=== PATIENT | female | born 1935 | race Caucasian/White ===

== ENCOUNTER 2020-03-19 22:22 | Emergency (ER) | payer MEDICARE ==
[2020-03-19] MEDS ORDERED: Metoprolol Succinate 25 MG Tab.ER PO ONE (22:59)
--- NOTE | 2020-03-19 23:17 | EDM.PDOC ---
ED HPI GENERAL MEDICAL PROBLEM - General Chief Complaint: General Stated Complaint: fell Time Seen by Provider: 03/19/20 22:35 Source of Information: Reports: Patient, Family History Limitations: Reports: No Limitations - History of Present Illness INITIAL COMMENTS - FREE TEXT/NARRATIVE: Patient presented to the ED because she fell 16 steps. She was drinking wine tonight and she is heading to her bedroom but instead she missed a turn and went to the stairs instead and fell 16 steps down to the basement. She c/o back pain and right rib pain which according to he son is chronic. There was also a brief LOC after the fall. Tailbone Pain Score (Numeric/FACES): 10 - Related Data Allergies Allergy/AdvReac Type Severity Reaction Status Date / Time No Known Allergies Allergy Verified 03/19/20 22:42 Home Meds: Home Meds hydroCHLOROthiazide [Hydrochlorothiazide] 25 mg PO DAILY 03/19/20 [History] Past Medical History Cardiovascular History: Reports: Hypertension, Other (See Below) Other Cardiovascular History: Tachycardia and tachypnea Musculoskeletal History: Reports: Arthritis - Past Surgical History GI Surgical History: Reports: Other (See Below) Other GI Surgeries/Procedures: Hemicolectomy Musculoskeletal Surgical History: Reports: Hip Replacement Social & Family History - Tobacco Use Smoking Status *Q: Former Smoker Used Tobacco, but Quit: Yes Month/Year Tobacco Last Used: 45 years ago - Caffeine Use Caffeine Use: Reports: Coffee - Recreational Drug Use Recreational Drug Use: No ED ROS GENERAL - Review of Systems Review Of Systems: See Below Constitutional: Reports: No Symptoms HEENT: Reports: No Symptoms Respiratory: Reports: No Symptoms Cardiovascular: Reports: No Symptoms Endocrine: Reports: No Symptoms GI/Abdominal: Reports: No Symptoms : Reports: No Symptoms Musculoskeletal: Reports: Back Pain, Other (rib pain-rt) Skin: Reports: No Symptoms Neurological: Reports: No Symptoms ED EXAM, GENERAL - Physical Exam Exam: See Below Exam Limited By: No Limitations General Appearance: Alert, No Apparent Distress Ears: Normal External Exam, Normal Canal, Hearing Grossly Normal Nose: Normal Inspection, Normal Mucosa, No Blood Throat/Mouth: Normal Inspection, Normal Lips, Normal Teeth Head: Atraumatic, Normocephalic Neck: Normal Inspection, Supple, Non-Tender, Full Range of Motion Respiratory/Chest: No Respiratory Distress, Lungs Clear, Normal Breath Sounds Cardiovascular: Normal Peripheral Pulses, Regular Rate, Rhythm, No Edema, No Gallop GI/Abdominal: Normal Bowel Sounds, Soft, Non-Tender, No Organomegaly Back Exam: Normal Inspection, Vertebral Tenderness Extremities: Normal Inspection, No Pedal Edema Neurological: Alert, Oriented, CN II-XII Intact, Normal Cognition, Normal Gait Psychiatric: Normal Affect Course - Vital Signs Text/Narrative:: Labs/CT-head/c-spine,thoracic spine,lumbar spine, R rib with CXR results were discussed with patient and her son Micheline con 20 meq, 2 PO x2 doses Metoprolol 25 mg PO x1 Ibuprofen 600 mg and tylenol 1000 Patient became hypotensive after talking to Dr Villatoro, a 1 L of saline bolus was given and her BP improved. Neurosurgery consult was done with Dr Kelly who just want her a baseline standing thoracic spine and will follow with him in 2-3 weeks. Last Recorded V/S: Last Vital Signs Temp 36.5 C 03/19/20 22:30 Pulse 128 H 03/19/20 23:04 Resp 25 H 03/19/20 22:30 BP 96/68 03/19/20 23:04 Pulse Ox 88 L 03/20/20 02:00 - Orders/Labs/Meds Orders: Active Orders 24 hr Category Date Time Status Oxygen Therapy, ED [RC] ASDIRECTED Care 03/20/20 02:00 Active Cervical Spine wo Cont [CT] Stat Exams 03/19/20 22:52 Taken Chest Abdomen Pelvis w Cont [CT] Stat Exams 03/20/20 02:02 Taken Head wo Cont [CT] Stat Exams 03/19/20 22:52 Taken Lumbar Spine wo Cont [CT] Stat Exams 03/19/20 23:08 Taken Ribs 2V w Chest Rt [CR] Stat Exams 03/19/20 22:52 Taken Thoracic Spine 3V [CR] Stat Exams 03/20/20 02:09 Taken Thoracic Spine wo Cont [CT] Stat Exams 03/19/20 23:08 Taken Labs: Laboratory Tests 03/19/20 03/19/20 03/19/20 Range/Units 23:05 23:05 23:05 WBC 7.7 (4.5-12.0) X10-3/uL RBC 4.05 (3.23-5.20) x10(6)uL Hgb 14.1 (11.5-15.5) g/dL Hct 42.1 (30.0-51.3) % MCV 103.9 H (80-96) fL MCH 34.9 H (27.7-33.6) pg MCHC 33.6 (32.2-35.4) g/dL RDW 14.2 (11.5-15.5) % Plt Count 285 (125-369) X10(3)uL MPV 6.2 L (7.4-10.4) fL Neut % (Auto) 48.4 (46-82) % Lymph % (Auto) 41.2 H (13-37) % Kinney % (Auto) 9.3 (4-12) % Eos % (Auto) 1 (1.0-5.0) % Baso % (Auto) 0 (0-2) % Neut # (Auto) 3.7 (1.6-8.3) # Lymph # (Auto) 3.2 (0.6-5.0) # Kinney # (Auto) 0.7 (0.0-1.3) # Eos # (Auto) 0.1 (0.0-0.8) # Baso # (Auto) 0.0 (0.0-0.2) # PT 10.1 (9.0-11.1) sec INR 0.94 L (1.00-1.24) APTT 26.3 (24.4-33.2) SECONDS Sodium 138 (135-145) mmol/L Potassium 2.7 L* (3.5-5.3) mmol/L Chloride 95 L (100-110) mmol/L Carbon Dioxide 30 (21-32) mmol/L BUN 11 (7-18) mg/dL Creatinine 1.0 (0.55-1.02) mg/dL Est Cr Clr Drug Dosing 39.90 mL/min Estimated GFR (MDRD) 53 L (>60) BUN/Creatinine Ratio 11.0 (9-20) Glucose 105 (80-116) mg/dL Calcium 8.7 (8.6-10.2) mg/dL Total Bilirubin 0.5 (0.1-1.3) mg/dL AST 50 H (5-25) IU/L ALT 56 H (12-36) U/L Alkaline Phosphatase 54 L (56-112) IU/L Total Protein 6.8 (6.0-8.0) g/dL Albumin 3.1 L (3.2-4.6) g/dL Globulin 3.7 g/dL Albumin/Globulin Ratio 0.8 Ethyl Alcohol (<0.03) % 03/19/20 03/20/20 Range/Units 23:05 02:10 WBC (4.5-12.0) X10-3/uL RBC (3.23-5.20) x10(6)uL Hgb 13.3 (11.5-15.5) g/dL Hct (30.0-51.3) % MCV (80-96) fL MCH (27.7-33.6) pg MCHC (32.2-35.4) g/dL RDW (11.5-15.5) % Plt Count (125-369) X10(3)uL MPV (7.4-10.4) fL Neut % (Auto) (46-82) % Lymph % (Auto) (13-37) % Kinney % (Auto) (4-12) % Eos % (Auto) (1.0-5.0) % Baso % (Auto) (0-2) % Neut # (Auto) (1.6-8.3) # Lymph # (Auto) (0.6-5.0) # Kinney # (Auto) (0.0-1.3) # Eos # (Auto) (0.0-0.8) # Baso # (Auto) (0.0-0.2) # PT (9.0-11.1) sec INR (1.00-1.24) APTT (24.4-33.2) SECONDS Sodium (135-145) mmol/L Potassium (3.5-5.3) mmol/L Chloride (100-110) mmol/L Carbon Dioxide (21-32) mmol/L BUN (7-18) mg/dL Creatinine (0.55-1.02) mg/dL Est Cr Clr Drug Dosing mL/min Estimated GFR (MDRD) (>60) BUN/Creatinine Ratio (9-20) Glucose (80-116) mg/dL Calcium (8.6-10.2) mg/dL Total Bilirubin (0.1-1.3) mg/dL AST (5-25) IU/L ALT (12-36) U/L Alkaline Phosphatase (56-112) IU/L Total Protein (6.0-8.0) g/dL Albumin (3.2-4.6) g/dL Globulin g/dL Albumin/Globulin Ratio Ethyl Alcohol 0.20 H* (<0.03) % Meds: Medications Discontinued Medications Generic Name Dose Route Start Last Admin Trade Name Freq PRN Reason Stop Dose Admin Acetaminophen 1,000 mg 03/20/20 00:43 03/20/20 00:45 Tylenol Extra Strength PO 03/20/20 00:44 1,000 mg ONETIME ONE Administration Sodium Chloride 1,000 mls @ 999 mls/hr 03/20/20 02:10 03/20/20 02:10 Normal Saline IV 03/20/20 03:10 999 mls/hr .BOLUS ONE Administration Ibuprofen 800 mg 03/20/20 00:42 03/20/20 00:46 Motrin PO 03/20/20 00:43 800 mg ONETIME ONE Administration Iopamidol 90 ml 03/20/20 02:36 03/20/20 03:10 Isovue-370 (76%) IV 03/20/20 02:37 90 ml . DIRECTED ONE Administration Metoprolol Succinate 25 mg 03/19/20 22:59 03/19/20 23:04 Toprol Xl PO 03/19/20 23:00 25 mg ONETIME ONE Administration Potassium Chloride 40 meq 03/19/20 23:32 03/20/20 00:08 Klor-Con M20 PO 03/19/20 23:33 40 meq ONETIME ONE Administration Potassium Chloride 40 meq 03/20/20 02:26 03/20/20 03:18 Klor-Con M20 PO 03/20/20 02:27 40 meq NOW STA Administration Departure - Departure Time of Disposition: 04:30 Disposition: DC/Tfer to Acute Hospital 02 Condition: Good Clinical Impression: Rib fracture, Burst fracture of thoracic vertebra, Musculoskeletal pain, Alcohol intoxication - Discharge Information Referrals: Sofia Lima NP [Primary Care Provider] - Forms: ED Department Discharge Sepsis Event Note (ED) - Evaluation Sepsis Screening Result: No Definite Risk - Focused Exam Vital Signs: Vital Signs Temp Pulse Pulse Resp BP BP Pulse Ox 03/20/20 02:00 03/19/20 23:04 128 H 96/68 03/19/20 22:30 36.5 C 120 H 25 H 111/79 94 L Pulse Ox 03/20/20 02:00 88 L 03/19/20 23:04 03/19/20 22:30 - My Orders Last 24 Hours: My Active Orders 03/19/20 22:52 Cervical Spine wo Cont [CT] Stat Head wo Cont [CT] Stat Ribs 2V w Chest Rt [CR] Stat 03/19/20 23:08 Lumbar Spine wo Cont [CT] Stat Thoracic Spine wo Cont [CT] Stat 03/20/20 02:00 Oxygen Therapy, ED [RC] ASDIRECTED 03/20/20 02:02 Chest Abdomen Pelvis w Cont [CT] Stat 03/20/20 02:09 Thoracic Spine 3V [CR] Stat - Assessment/Plan Last 24 Hours: My Active Orders 03/19/20 22:52 Cervical Spine wo Cont [CT] Stat Head wo Cont [CT] Stat Ribs 2V w Chest Rt [CR] Stat 03/19/20 23:08 Lumbar Spine wo Cont [CT] Stat Thoracic Spine wo Cont [CT] Stat 03/20/20 02:00 Oxygen Therapy, ED [RC] ASDIRECTED 03/20/20 02:02 Chest Abdomen Pelvis w Cont [CT] Stat 03/20/20 02:09 Thoracic Spine 3V [CR] Stat
[2020-03-19] MEDS ORDERED: Potassium Chloride 20 MEQ Tab.ER PO ONE (23:32)
[2020-03-20] MEDS ORDERED: Ibuprofen 800 MG Tab PO ONE (00:42)
[2020-03-20] MEDS ORDERED: Acetaminophen 500 MG Tab PO ONE (00:43)
[2020-03-20] MEDS ORDERED: Sodium Chloride 0.9% 1,000 ML IV ONE (02:10)
[2020-03-20] MEDS ORDERED: Potassium Chloride 20 MEQ Tab.ER PO STA (02:26)
[2020-03-20] MEDS ORDERED: Iopamidol 755 Mg/ML 100 ML Bottle IV ONE (02:36)
== END 2020-03-20 04:52 ==
LOC: FB.ED 22:22
DX: S22.31XA Fracture of one rib, right side, initial encounter for closed fracture (principal); S22.041A Stable burst fracture of fourth thoracic vertebra, initial encounter for closed fracture; F10.129 Alcohol abuse with intoxication, unspecified; E87.6 Hypokalemia; I10 Essential (primary) hypertension; Z87.891 Personal history of nicotine dependence; Z79.899 Other long term (current) drug therapy; W10.8XXA Fall (on) (from) other stairs and steps, initial encounter; Y92.009 Unspecified place in unspecified non-institutional (private) residence as the place of occurrence of the external cause
CPT/HCPCS: 36415; 70450; 71101; 71260; 72072; 72125; 72128; 72131; 74177; 80053; 80307; 85018; 85025; 85610; 85730; 96360; 99285; A9270; J7030; Q9967

== ENCOUNTER 2020-08-08 08:33 | Day surgery (SDC) | payer MEDICARE ==
[~2020-08-08 08:33] MED LIST: Lactated Ringers 1,000 ML IV PRN; Sodium Chloride 0.9% 10 ML Syringe FLUSH PRN
[2020-08-08] MEDS ORDERED: Midazolam 1 MG/ML 2 ML SDV IV ONE (08:34)
[2020-08-08] MEDS ORDERED: fentaNYL 100 MCG/2 ML SDV IV ONE (08:34)
[2020-08-08] MEDS ORDERED: acetaZOLAMIDE 500 MG Cap.ER PO ONE (10:30)
--- NOTE | 2020-08-08 13:47 | OR ---
DATE OF OPERATION: 08/08/2020 SURGEON: Rachel Rincon MD PREOPERATIVE DIAGNOSIS: Visually significant cataract, right eye. POSTOPERATIVE DIAGNOSIS: Visually significant cataract, right eye. PROCEDURES PERFORMED: Phacoemulsification with intraocular lens placement, right eye. ASSISTANTS: None. ANESTHESIA: Local with sedation. COMPLICATIONS: None. BLOOD LOSS: None. IMPLANTS: Armani [id number] 22.0 diopter lens implanted. CDE: 6.14. DESCRIPTION OF PROCEDURE: After risks and benefits were reviewed with the patient, consent was obtained in the preoperative area, and the operative eye was marked with a surgical pen. In the preoperative area, a pledget was used to dilate the pupil consisting of a mixture of phenylephrine 10%, cyclopentolate 2%, moxifloxacin 0.5%, and bupivacaine 0.75%. The patient was taken to the operating room, where a time-out was performed, and the patient was placed under monitored anesthesia care. Topical tetracaine was used for anesthesia. The operative eye was prepped and draped for ophthalmic surgery, and the microscope was brought into position and focused. A paracentesis incision was made, followed by injection of preservative-free 1% lidocaine into the anterior chamber, followed by injection of Viscoat into the anterior chamber. A microkeratome blade was used to make a corneal limbal incision temporally. A cystotome was used to make the beginning of the capsulorrhexis, which was carried around 360 degrees in a curvilinear fashion using Utrata forceps. A [place] cannula with BSS was used to hydrodissect and hydrodelineate the nucleus. The nucleus was removed in a divide and conquer manner using phacoemulsification. Irrigation and aspiration were used to remove the remaining cortical material. Provisc was used to inflate the capsular bag, and a pre-loaded Armani [id number] 22.0 diopter lens, serial number [id number] was injected into the capsular bag. A Sinskey hook was used to position and center the lens. Next, irrigation and aspiration was used to remove any remaining viscoelastic and cortical material from the anterior chamber. BSS on a cannula was used to inflate the anterior chamber and hydrate the wound. The wound was checked and found to be watertight. 1 mg of Moxifloxacin was injected into the anterior chamber. Drapes were removed and the eye was cleaned. A drop of brimonidine 0.2% and a drop of TobraDex was placed. The eye was shielded, and the patient was taken to the recovery room in stable condition. /[id number] BETZAIDA/STEVE
== END 2020-08-08 11:25 | disposition home or self-care (01) ==
LOC: FB.SDS 08:33
PROVIDERS: ATTEND Ophthalmology
DX: H25.13 Age-related nuclear cataract, bilateral (principal); I10 Essential (primary) hypertension; E87.6 Hypokalemia; E87.1 Hypo-osmolality and hyponatremia; H16.103 Unspecified superficial keratitis, bilateral; H35.4 Peripheral retinal degeneration; H35.3131 Nonexudative age-related macular degeneration, bilateral, early dry stage; H52.03 Hypermetropia, bilateral; Z79.899 Other long term (current) drug therapy; Z88.8 Allergy status to other drugs, medicaments and biological substances; Z98.890 Other specified postprocedural states; Z87.891 Personal history of nicotine dependence
CPT/HCPCS: 00142; 66984; A9270; J2250; J3010; V2632

== ENCOUNTER 2020-08-22 08:54 | Day surgery (SDC) | payer MEDICARE ==
[~2020-08-22 08:54] MED LIST changes: -Lactated Ringers 1,000 ML IV PRN; -Sodium Chloride 0.9% 10 ML Syringe FLUSH PRN; +acetaZOLAMIDE 500 MG Cap.ER PO ONE
[2020-08-22] MEDS ORDERED: Midazolam 1 MG/ML 2 ML SDV IV ONE (08:55)
[2020-08-22] MEDS ORDERED: fentaNYL 100 MCG/2 ML SDV IV ONE (08:55)
[2020-08-22] MEDS ORDERED: Sodium Chloride 0.9% 10 ML Syringe FLUSH PRN (09:30)
[2020-08-22] MEDS ORDERED: acetaZOLAMIDE 500 MG Cap.ER PO ONE (09:30)
[2020-08-22] MEDS ORDERED: Lactated Ringers 1,000 ML IV SCH (09:30)
--- NOTE | 2020-08-22 13:30 | OR ---
DATE OF OPERATION: 08/22/2020 SURGEON: Rachel Rincon MD PREOPERATIVE DIAGNOSIS: Visually significant cataract, left eye. POSTOPERATIVE DIAGNOSIS: Visually significant cataract, left eye. PROCEDURES PERFORMED: Phacoemulsification with intraocular lens placement, left eye. ASSISTANTS: None. ANESTHESIA: Local with sedation. COMPLICATIONS: None. BLOOD LOSS: None. IMPLANTS: Armani ACU0T0 22.5 diopter lens implanted. CDE: 7.05. DESCRIPTION OF PROCEDURE: After risks and benefits were reviewed with the patient, consent was obtained in the preoperative area, and the operative eye was marked with a surgical pen. In the preoperative area, a pledget was used to dilate the pupil consisting of a mixture of phenylephrine 10%, cyclopentolate 2%, moxifloxacin 0.5%, and bupivacaine 0.75%. The patient was taken to the operating room, where a time-out was performed, and the patient was placed under monitored anesthesia care. Topical tetracaine was used for anesthesia. The operative eye was prepped and draped for ophthalmic surgery, and the microscope was brought into position and focused. A paracentesis incision was made, followed by injection of preservative-free 1% lidocaine into the anterior chamber, followed by injection of Viscoat into the anterior chamber. A microkeratome blade was used to make a corneal limbal incision temporally. A cystotome was used to make the beginning of the capsulorrhexis, which was carried around 360 degrees in a curvilinear fashion using Utrata forceps. A [place] cannula with BSS was used to hydrodissect and hydrodelineate the nucleus. The nucleus was removed in a divide and conquer manner using phacoemulsification. Irrigation and aspiration were used to remove the remaining cortical material. Provisc was used to inflate the capsular bag, and a pre-loaded Armani [id number] 22.5 diopter lens, serial number [id number] was injected into the capsular bag. A Sinskey hook was used to position and center the lens. Next, irrigation and aspiration was used to remove any remaining viscoelastic and cortical material from the anterior chamber. BSS on a cannula was used to inflate the anterior chamber and hydrate the wound. The wound was checked and found to be watertight. 1 mg of Moxifloxacin was injected into the anterior chamber. Drapes were removed and the eye was cleaned. A drop of brimonidine 0.2% and a drop of TobraDex was placed. The eye was shielded, and the patient was taken to the recovery room in stable condition. /[id number] BETZAIDA/STEVE
== END 2020-08-22 11:18 | disposition home or self-care (01) ==
LOC: FB.SDS 08:54
PROVIDERS: ATTEND Ophthalmology
DX: H25.13 Age-related nuclear cataract, bilateral (principal); H35.3131 Nonexudative age-related macular degeneration, bilateral, early dry stage; H52.03 Hypermetropia, bilateral; H35.4 Peripheral retinal degeneration; H16.103 Unspecified superficial keratitis, bilateral; I10 Essential (primary) hypertension; Z88.8 Allergy status to other drugs, medicaments and biological substances; Z87.891 Personal history of nicotine dependence; Z79.899 Other long term (current) drug therapy; Z98.890 Other specified postprocedural states
CPT/HCPCS: 00142-QZ; A9270-GY; J2250; J3010; V2632